=== PATIENT | female | born 2000 | race Caucasian/White ===

== ENCOUNTER 2024-07-29 13:15 | Emergency (ER) | payer BC, SELFPAY ==
[2024-07-29 13:20] VITALS: BP 146/94
--- NOTE | 2024-07-29 14:09 | ED.GENMED ---
History of Present Illness
<Marilee Roberson PA-C - Last Filed: 07/31/24 10:28>
General
Chief Complaint: Abdominal Symptoms
Source: patient
Exam Limitations: none
Time Seen by Provider: 07/29/24 13:46
Nursing documentation reviewed up to this point in time: agreed with
History of Present Illness
History of Present Illness:
24 y/o F
with no sig pmh
from UC
hre with abdominal pain after eating x 1 week with pain that goes to right shulder at times
she is wondering if she has gallstones
sometimes has eipgatric burning
nevr has seen GI
no fever, chills, vomiting, diarrhea, black stool, alcohola buse
Last menstrual was last week
Phy Exam
<NERI Cho Last Filed: 07/31/24 10:28>
Physical Exam
Physical Exam:
GENERAL: Alert , in no apparent distress
EYE: pupils equal and reactive
NECK: Supple
ENT: o/p clr, mmm.
CARDIAC: Regular rate and rhythm .
LUNGS: Clear breath sounds bilaterally, no acute respiratory distress, no wheezes/rales/rhonchi
ABDOMEN: Soft, without focal tenderness, no r/g, no cvat, normal bowel sounds, negative Millard sign
NEUROLOGICAL: Alert and oriented, no focal neuro deficits
SKIN: Warm and dry, skin intact.
MUSCULOSKELETAL: No edema, well perfused. neg constantine's sign
PSYCH: Normal and appropriate interaction.
Course
<NERI Cho Last Filed: 07/31/24 10:28>
Orders/Labs/Results
Orders:
Orders
07/29/24 14:25
0.9% Sodium Chloride 1000 ml [Nss] 1,000 ml IV BOLUS
Famotidine [Pepcid] 20 mg IV NOW STA
Test Result ONCE
US Abdomen Complete/Upper Urgent
Comment:
Reason For Exam: ruq tasia post prandial
07/29/24 14:36
Complete Blood Count/With Diff Urgent
Comprehensive Metabolic Panel Urgent
HCG, Serum Qualitative Screen Urgent
Lipase Urgent
Urinalysis Reflex To Culture Urgent
Date Specimen was Collected: 07/29/24
Time Specimen was Collected: 14:30
07/29/24 15:45
Abdominal Series [CR Obstruct Series W/pa Chest] Urgent
Comment:
Reason For Exam: constipation
Abnormal Lab Results
07/29/24
14:36
Absolute Lymphs (auto) 1.1 L 10^3/uL
(1.2-3.4)
Lymphocytes % 19.3 L %
(20.5-51.1)
Carbon Dioxide 21 L mmol/L
(22-30)
Glucose 100 H mg/dl
(70-99)
Urine Ketones 1+ A
(Negative)
07/29/24 14:36
07/29/24 14:36
Vital Signs
Initial and Last Documented VS:
Initial Vital Signs
Temp Pulse Resp BP Pulse Ox
98.4 F 100 17 146/94 100
07/29/24 13:20 07/29/24 13:20 07/29/24 13:20 07/29/24 13:20 07/29/24 13:20
Last Documented Vital Signs
Temp Pulse Resp BP Pulse Ox
98.4 F 86 16 124/79 100
07/29/24 13:20 07/29/24 15:24 07/29/24 15:24 07/29/24 16:29 07/29/24 16:45
Luizalt;John Graves PA-C - Last Filed: 07/29/24 16:53>
Orders/Labs/Results
Orders:
Orders
07/29/24 14:25
0.9% Sodium Chloride 1000 ml [Nss] 1,000 ml IV BOLUS
Famotidine [Pepcid] 20 mg IV NOW STA
Test Result ONCE
US Abdomen Complete/Upper Urgent
Comment:
Reason For Exam: ruq tasia post prandial
07/29/24 14:36
Complete Blood Count/With Diff Urgent
Comprehensive Metabolic Panel Urgent
HCG, Serum Qualitative Screen Urgent
Lipase Urgent
Urinalysis Reflex To Culture Urgent
Date Specimen was Collected: 07/29/24
Time Specimen was Collected: 14:30
07/29/24 15:45
Abdominal Series [CR Obstruct Series W/pa Chest] Urgent
Comment:
Reason For Exam: constipation
Abnormal Lab Results
07/29/24
14:36
Absolute Lymphs (auto) 1.1 L 10^3/uL
(1.2-3.4)
Lymphocytes % 19.3 L %
(20.5-51.1)
Carbon Dioxide 21 L mmol/L
(22-30)
Glucose 100 H mg/dl
(70-99)
Urine Ketones 1+ A
(Negative)
07/29/24 14:36
07/29/24 14:36
Vital Signs
Initial and Last Documented VS:
Initial Vital Signs
Temp Pulse Resp BP Pulse Ox
98.4 F 100 17 146/94 100
07/29/24 13:20 07/29/24 13:20 07/29/24 13:20 07/29/24 13:20 07/29/24 13:20
Last Documented Vital Signs
Temp Pulse Resp BP Pulse Ox
98.4 F 86 16 124/79 100
07/29/24 13:20 07/29/24 15:24 07/29/24 15:24 07/29/24 16:29 07/29/24 16:45
<Marilee Roberson PA-C - Last Filed: 07/31/24 10:28>
MDM/Problems Addressed
Differential Diagnosis Includes:
gastritis, cholelithiasis, cholecystitis, constipation
MDM/Problems Addressed:
24-year-old female sent from urgent care for workup for epigastric/postprandial abdominal pain rating to her shoulder over the last week. Patient says she mostly gets the pain after eating. Sometimes feels burning. She has not had any nausea or
vomiting but she did have some constipation and difficulty moving her bowels today.
No significant tenderness and negative Millard sign
Will screen with labs and an ultrasound. I also consider that she may be constipated causing her pain we will do abdominal x-ray
<John Graves PA-C - Last Filed: 07/29/24 16:53>
*Critical Care Note
Total Time (30-74mins, 75-104mins- exclusive of procedures): Not Applicable
<John Graves PA-C - Last Filed: 07/29/24 16:53>
Update Note
Update Note:
Received care of patient pending ultrasound and x-ray. Ultrasound shows no cholelithiasis. There were 2 small polyps noted in the gallbladder but no indication for any follow-up required. X-ray of the abdomen was reviewed and is negative.
Reassessed patient who is sitting comfortably Explained results. Recommended Pepcid and perhaps MiraLAX. Recommended GI follow-up. Stable for discharge
ED Attending Note
<Marilee Roberson PA-C - Last Filed: 07/31/24 10:28>
-
Portions of this chart may have been created with voice recognition software.� Occasional wrong word or��sound alike� substitutions may have occurred due to the inherent limitations of voice recognition software.
Discharge Plan
Departure
Patient Disposition: Home (Routine Discharge)
Date of Disposition: 07/29/24
Time of Disposition: 16:52
Patient with high blood pressure during this ER visit?: No
Discharge Problem:
Abdominal pain
Instructions: Abdominal Pain
Prescriptions:
No Action
No Current Medications
0
Referrals:
Adalberto Crowe MD [Active] -
NONE,* [Family Provider] -
Activity Restrictions/Additional Instructions:
Use Pepcid [id number] daily. He may use MiraLAX if needed for constipation. Return here for worsening symptoms otherwise follow-up with GI
Interventions
Interventions:
*Risk Screen - Suicide Last Done: 07/29/24 13:19
*General Assessment Last Done: 07/29/24 13:19
*Neglect/Abuse Screening Last Done: 07/29/24 13:19
ED- Fall Risk Assessment Last Done: 07/29/24 14:59
*ED COVID-19 Vaccine History Last Done: 07/29/24 13:19
*Nursing Disposition Last Done: 07/29/24 17:01
XK-Jsnxkb-Falejptbke Assessment Last Done: 07/29/24 15:02
Discharge Date and Time
Discharge Date/Time: 07/29/24 17:02
Print Language: FAROESE
--- NOTE | 2024-07-29 14:21 | EDRN ---
Marilee PEREZ currently at the pts bedside
[2024-07-29] MEDS: NSS 1000 IV (14:43)
[2024-07-29] MEDS: PEPCID 20 MG IV (14:43)
[2024-07-29 14:50] LABS: % Basophils 0.4 % (0-2); % Eosinophils 1.1 % (0-6); % Immature Granulocytes 0.2 % (0-0.5); % Lymphocytes 19.3 % (20.5-51.1); % Monocytes 6.9 % (1.7-9.3); % Neutrophils 72.1 % (42.2-75.2); Absolute Eosinophils 0.1 10^3/uL (0-0.7); Absolute Lymphocytes 1.1 10^3/uL (1.2-3.4); Absolute Monocytes 0.4 10^3/uL (0.1-0.6); Hematocrit 38.3 % (37.0-47.0); Hemoglobin 13.6 g/dL (12.0-16.0); Mean Corp Hgb Conc. 35.5 g/dL (33.0-37.0); Mean Corpuscular Hgb 30.5 pg (27.0-31.0); Mean Corpuscular Volume 85.9 fL (81.0-99.0); Nucleated Red Blood Cells % 0 %; Platelet Count 249 10^3/uL (130-400); Red Blood Cell Count 4.46 10^6/uL (4.20-5.40); Red Cell Dist. Width 12.2 % (11.5-14.5); White Blood Cell Count 5.5 10^3/uL (4.8-10.8)
[2024-07-29 14:51] LABS: Urine Albumin Negative (Neg - Trace); Urine Bilirubin Negative (Negative); Urine Character Clear (Clear); Urine Color Yellow; Urine Glucose Negative (Negative); Urine Ketone 1+ (Negative); Urine Leukocyte Negative (Negative); Urine Nitrite Negative (Negative); Urine Occult Blood Negative (Negative); Urine Urobilinogen Negative (Neg - 1+)
[2024-07-29 14:59] VITALS: BMI 25.1
[2024-07-29 14:59] LABS: HCG, Serum Qualitative Screen Negative
[2024-07-29 15:00] VITALS: BP 123/78
[2024-07-29 15:02] LABS: ALT (SGPT) 17 U/L (0-35); AST (SGOT) 26 U/L (14-36); Albumin 4.6 g/dl (3.5-5.0); Alkaline Phosphatase 76 U/L (38-126); Blood Urea Nitrogen 9 mg/dl (7-17); Calcium 9.6 mg/dl (8.4-10.2); Carbon Dioxide 21 mmol/L (22-30); Chloride 107 mmol/L (98-107); Glucose 100 mg/dl (70-99); Lipase 38 U/L (23-300); Sodium 141 mmol/L (135-145); Total Bilirubin 0.8 mg/dl (0.2-1.3); Total Protein 7.3 g/dl (6.3-8.2); eGFR > 60.00
[2024-07-29 15:24] VITALS: BP 123/78
[2024-07-29 15:48] VITALS: BP 128/81
[2024-07-29 16:00] VITALS: BP 119/72
[2024-07-29 16:29] VITALS: BP 124/79
== END 2024-07-29 17:02 | disposition home or self-care (01) ==
LOC: EMR 13:15
PROVIDERS: Physician Assistant; EMERGENCY PHYSICIAN Student in an Organized Health Care Education/Training Program
DX: R10.13 Epigastric pain (principal)
CPT/HCPCS: 99285; 96374; 96361; 74022; 76700; 80053; 81003; 83690; 84703; 85025